=== PATIENT | female | born 1970 | race Caucasian/White ===

== ENCOUNTER 2024-07-16 23:14 | Emergency (ER) | payer OTHER ==
[~2024-07-16] VITALS: Ht 165.1 cm; Wt 59.0 kg
[2024-07-16 23:23] VITALS: BP 165/121
== END 2024-07-17 00:47 | disposition home or self-care (01) ==
LOC: ER 23:14
DX: M25.561 Pain in right knee (principal)
CPT/HCPCS: 93971; 99283-25